=== PATIENT | male | born 1990 | race African-American/Black ===

== ENCOUNTER 2022-08-24 17:42 | Emergency (ER) | payer MEDICAID ==
[~2022-08-24] VITALS: Ht 185.4 cm; Wt 77.0 kg
[2022-08-24 18:01] VITALS: BP 138/78
[2022-08-24] MEDS ORDERED: TETanus/Pertussis (Acell)/Diphther VAC/PF (Tdap-Adult) 0.5ml syringe IMVAC ONE (19:00)
[2022-08-24] MEDS ORDERED: LIDOCAINE 2%/EPI 1:100,000 inj. Multi-dose 20 ML VIAL IJ ONE (19:00)
[2022-08-24] MEDS ORDERED: bacitracin 15gm ointment TP ONE (19:25)
[2022-08-24] MEDS ORDERED: ibuprofen 200mg tablet PO ONE (19:30)
[2022-08-24] MEDS ORDERED: IBUP-1985 PO (19:49)
== END 2022-08-24 20:31 | disposition home or self-care (01) ==
LOC: ER 17:43
DX: S61.412A Laceration without foreign body of left hand, initial encounter (principal); W26.8XXA Contact with other sharp object(s), not elsewhere classified, initial encounter; Y93.89 Activity, other specified; Y92.89 Other specified places as the place of occurrence of the external cause; Y99.8 Other external cause status
CPT/HCPCS: 12002; 90471; 90715; 99283; A6449